=== PATIENT | female | born 1970 | race Caucasian/White ===

== ENCOUNTER → 2016-08-11 | Outpatient (REF) | payer BC, OTHER ==
[~2016-08-11] MED LIST: VICO5TAB OR
[2016-08-11 11:22] LABS: BASO % 0.6 % (0.0-1.0); EOS # 0.1 K/mm3 (0.0-0.50); EOS % 1.6 % (0.0-3.0); LARGE UNSTAINED CELL # 0.1 K/mm3 (0.0-0.4); LARGE UNSTAINED CELL % 1.3 % (0.0-4.0); LYMPH % 23.6 % (24.0-44.0); MEAN CORPUSCULAR HEMOGLOBIN 29.6 pg (27.0-33.0); MEAN CORPUSCULAR HGB CONC 33.6 g/dl (32.0-36.5); MEAN CORPUSCULAR VOLUME 88.2 fl (80.0-96.0); MONO # 0.4 K/mm3 (0.0-0.8); MONO % 4.2 % (0.0-5.0); NEUTROPHILS # 5.9 K/mm3 (1.8-7.7); NEUTROPHILS % 68.6 % (36.0-66.0); PLATELET COUNT, AUTOMATED 264 k/mm3 (150-450); RED CELL DISTRIBUTION WIDTH 12.3 % (11.5-14.5); WHITE BLOOD COUNT 8.5 K/mm3 (4.0-10.0)
[2016-08-11 11:39] LABS: VITAMIN B12 LEVEL 816 PG/ML
[2016-08-11 11:40] LABS: FOLATE 15.9 NG/ML
[2016-08-11 11:53] LABS: ALBUMIN 3.8 GM/DL (3.2-5.2); ALBUMIN/GLOBULIN RATIO 1.09 (1.00-1.93); ALKALINE PHOSPHATASE 89 U/L (45-117); ALT/SGPT 21 U/L (12-78); ANION GAP 11 MEQ/L (8-16); AST/SGOT 17 U/L (15-37); BILIRUBIN,TOTAL 0.6 MG/DL (0.2-1.0); BLOOD UREA NITROGEN 13 MG/DL (7-18); CALCIUM LEVEL 8.9 MG/DL (8.5-10.1); CARBON DIOXIDE LEVEL 31 MEQ/L (21-32); CHLORIDE LEVEL 100 MEQ/L (98-107); CHOLESTEROL LEVEL 209 MG/DL (<200); CREATININE FOR GFR 0.86 MG/DL (0.55-1.02); GLOMERULAR FILTRATION RATE > 60.0 (>58); GLUCOSE, FASTING 112 MG/DL (70-105); MAGNESIUM LEVEL 2.2 MG/DL (1.8-2.4); SODIUM LEVEL 142 MEQ/L (136-145); TOTAL PROTEIN 7.3 GM/DL (6.4-8.2); TRIGLYCERIDES LEVEL 156 MG/DL (<150)
== END ==
LOC: M LABDRAW1 10:59
PROVIDERS: ATTEND Emergency Medicine
DX: I10 Essential (primary) hypertension (principal); G43.909 Migraine, unspecified, not intractable, without status migrainosus; G25.81 Restless legs syndrome

== ENCOUNTER → 2016-11-23 | Outpatient (REF) | payer OTHER | LOC: M LAB REF 16:50 | PROVIDERS: ATTEND Emergency Medicine | DX: Z12.4 Encounter for screening for malignant neoplasm of cervix (principal) ==

== ENCOUNTER → 2017-03-01 | Outpatient (REF) | payer OTHER ==
[2017-03-01 14:42] LABS: ALBUMIN 3.4 GM/DL (3.2-5.2); ALKALINE PHOSPHATASE 75 U/L (45-117); ALT/SGPT 17 U/L (12-78); ANION GAP 9 MEQ/L (8-16); AST/SGOT 11 U/L (15-37); BILIRUBIN,TOTAL 0.4 MG/DL (0.2-1.0); BLOOD UREA NITROGEN 16 MG/DL (7-18); CALCIUM LEVEL 8.8 MG/DL (8.5-10.1); CARBON DIOXIDE LEVEL 28 MEQ/L (21-32); CHLORIDE LEVEL 99 MEQ/L (98-107); CHOLESTEROL LEVEL 173 MG/DL (<200); CREATININE FOR GFR 0.78 MG/DL (0.55-1.02); GLOMERULAR FILTRATION RATE > 60.0 (>58); GLUCOSE, FASTING 110 MG/DL (70-105); POTASSIUM SERUM 3.8 MEQ/L (3.5-5.1); SODIUM LEVEL 136 MEQ/L (136-145); TOTAL PROTEIN 6.5 GM/DL (6.4-8.2); TRIGLYCERIDES LEVEL 106 MG/DL (<150)
== END ==
LOC: M LABDRAW1 13:50
PROVIDERS: ATTEND Emergency Medicine
DX: I10 Essential (primary) hypertension (principal); R73.01 Impaired fasting glucose; E55.9 Vitamin D deficiency, unspecified

== ENCOUNTER 2017-10-09 19:18 | Emergency (ER) | payer BC, OTHER ==
[2017-10-09] MEDS: NORCO, ANEXSIA 5/325MG TABLET (HYDROcodone/ACETAMINOPHEN) PO (19:59)
== END 2017-10-09 20:52 | disposition home or self-care (01) ==
LOC: M ED 19:18
DX: S93.401A Sprain of unspecified ligament of right ankle, initial encounter (principal); X50.0XXA Overexertion from strenuous movement or load, initial encounter; Y92.89 Other specified places as the place of occurrence of the external cause; Y93.B9 Activity, other involving muscle strengthening exercises; J45.909 Unspecified asthma, uncomplicated; F33.9 Major depressive disorder, recurrent, unspecified; Z79.899 Other long term (current) drug therapy; Z97.5 Presence of (intrauterine) contraceptive device
CPT/HCPCS: 73610

== ENCOUNTER → 2018-03-17 | Outpatient (REF) | payer OTHER ==
[2018-03-17 10:56] LABS: ALBUMIN 3.6 GM/DL (3.2-5.2); ALBUMIN/GLOBULIN RATIO 1.09 (1.00-1.93); ALKALINE PHOSPHATASE 77 U/L (45-117); ALT/SGPT 23 U/L (12-78); ANION GAP 8 MEQ/L (8-16); AST/SGOT 11 U/L (7-37); BILIRUBIN,TOTAL 0.5 MG/DL (0.2-1.0); BLOOD UREA NITROGEN 17 MG/DL (7-18); CARBON DIOXIDE LEVEL 30 MEQ/L (21-32); CHLORIDE LEVEL 103 MEQ/L (98-107); CHOLESTEROL LEVEL 179 MG/DL (<200); CHOLESTEROL RISK RATIO 4.475 (<5); CREATININE FOR GFR 0.79 MG/DL (0.55-1.30); GLOMERULAR FILTRATION RATE > 60.0 (>58); GLUCOSE, FASTING 121 MG/DL (70-100); HDL CHOLESTEROL 40 MG/DL (>40); LDL CHOLESTEROL 115.4 MG/DL (<100); NON-HDL-C 139 MG/DL; POTASSIUM SERUM 4.2 MEQ/L (3.5-5.1); SODIUM LEVEL 141 MEQ/L (136-145); TOTAL PROTEIN 6.9 GM/DL (6.4-8.2); TRIGLYCERIDES LEVEL 118 MG/DL (<150)
[2018-03-17 11:43] LABS: ESTIMATED AVERAGE GLUCOSE 123 MG/DL (60-110); HEMOGLOBIN A1c 5.9 %
== END ==
LOC: M LABDRAW1 09:58
DX: I10 Essential (primary) hypertension (principal); R73.01 Impaired fasting glucose; E55.9 Vitamin D deficiency, unspecified

== ENCOUNTER 2018-09-21 14:28 | Emergency (ER) | payer BC, OTHER ==
[~2018-09-21] VITALS: Ht 160 cm; Wt 103.6 kg
[~2018-09-21 14:28] MED LIST changes: +ALEV220C2 PO; +CHLO125TA; +FISH100049 PO; +MIRE1IUD IU; +NORCOTAB PO; +POTA1TAB23; +ZYRT10CA PO
[2018-09-21] MEDS ORDERED: CELE1CAP7 PO (14:46)
[2018-09-21] MEDS ORDERED: FRUIT PO (14:46)
[2018-09-21] MEDS ORDERED: [UNRECOGNIZED DRUG - OTHER] PO (14:46)
[2018-09-21] MEDS ORDERED: GI COCKTAIL 50ML BTL(HYOSCYAMINE/MAALOX/LIDOCAINE VISCOUS)(1:3:1) PO ONE (15:00)
[2018-09-21 15:04] LABS: BASO # 0.1 10^3/uL (0.0-0.2); BASO % 0.5 % (0.0-1.0); EOS # 0.1 10^3/uL (0.0-0.50); EOS % 0.6 % (0.0-3.0); HEMATOCRIT 40.2 % (36.0-47.0); HEMOGLOBIN 13.9 g/dl (12.0-15.5); LYMPH # 2.3 10^3/uL (1.5-4.5); LYMPH % 18.1 % (24.0-44.0); MEAN CORPUSCULAR HEMOGLOBIN 30.3 pg (27.0-33.0); MEAN CORPUSCULAR HGB CONC 34.6 g/dl (32.0-36.5); MEAN CORPUSCULAR VOLUME 87.6 fl (80.0-96.0); MONO # 0.8 10^3/uL (0.0-0.8); MONO % 5.8 % (0.0-5.0); NEUTROPHILS # 9.6 10^3/uL (1.8-7.7); NEUTROPHILS % 74.5 % (36.0-66.0); PLATELET COUNT, AUTOMATED 255 10^3/uL (150-450); RED BLOOD COUNT 4.59 10^6/uL (4.00-5.40); WHITE BLOOD COUNT 12.9 10^3/uL (4.0-10.0)
[2018-09-21 15:15] LABS: INR 0.96; PROTHROMBIN TIME 12.9 SECONDS (12.1-14.4)
--- NOTE | 2018-09-21 15:22 | REP ---
CHEST: Single view. COMPARISON: 12/02/2015 There is no evidence of acute infiltrate. No pleural effusion is seen. The heart is normal in size. The mediastinal silhouette is unremarkable. The visualized osseous structures are intact. IMPRESSION: No acute pulmonary disease. Electronically Signed by Rony Lynn MD 09/22/2018 03:52 P
[2018-09-21 15:25] LABS: D-DIMER QUANT 339.38 ng/ml (<500)
[2018-09-21 15:38] LABS: ALBUMIN 3.6 GM/DL (3.2-5.2); ALT/SGPT 23 U/L (12-78); BILIRUBIN,DIRECT < 0.1 MG/DL (0.0-0.2); BILIRUBIN,TOTAL 0.3 MG/DL (0.2-1.0); BLOOD UREA NITROGEN 13 MG/DL (7-18); CALCIUM LEVEL 8.3 MG/DL (8.5-10.1); CARBON DIOXIDE LEVEL 27 MEQ/L (21-32); CHLORIDE LEVEL 103 MEQ/L (98-107); CPK CREATINE PHOSPHOKINASE 56 U/L (26-192); GLOMERULAR FILTRATION RATE > 60.0 (>58); GLUCOSE, FASTING 142 MG/DL (70-100); LIPASE 141 U/L (73-393); MB/CK RELATIVE INDEX 1.79 (< OR =4); NT-PRO BNP 27 PG/ML (<125); POTASSIUM SERUM 3.2 MEQ/L (3.5-5.1); SODIUM LEVEL 138 MEQ/L (136-145); TOTAL PROTEIN 6.7 GM/DL (6.4-8.2); TROPONIN I < 0.02 NG/ML (< 0.10)
[2018-09-21] MEDS ORDERED: POTASSIUM CHLORIDE 10 MEQ SR TABLET PO ONE (16:00)
[2018-09-21] MEDS ORDERED: SUCR1SS PO (16:48)
[2018-09-21] MEDS ORDERED: PEPC1TAB5 PO (16:49)
[2018-09-21 17:56] VITALS: BP 113/56
--- NOTE | 2018-09-22 00:49 | ECGEPIP ---
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
== END 2018-09-21 17:57 | disposition home or self-care (01) ==
LOC: M ED 14:28
DX: R07.9 Chest pain, unspecified (principal); R06.02 Shortness of breath; I10 Essential (primary) hypertension; J45.909 Unspecified asthma, uncomplicated; Z88.5 Allergy status to narcotic agent; Z79.899 Other long term (current) drug therapy; Z97.5 Presence of (intrauterine) contraceptive device; Z82.49 Family history of ischemic heart disease and other diseases of the circulatory system; Z83.3 Family history of diabetes mellitus

== ENCOUNTER → 2019-06-25 | Outpatient (CLI) | payer BC, OTHER ==
[~2019-06-25] MED LIST changes: +CELE1CAP7 PO; +FRUIT PO; +HYDR-3715 PO; -NORCOTAB PO; +PEPC1TAB5 PO; +SUCR1SS PO; +[UNRECOGNIZED DRUG - OTHER] PO
[2019-06-25 07:24] LABS: HEMOGLOBIN A1c 7.8 %
[2019-06-25 07:29] LABS: BLOOD UREA NITROGEN 16 MG/DL (7-18); CALCIUM LEVEL 9.1 MG/DL (8.5-10.1); CARBON DIOXIDE LEVEL 31 MEQ/L (21-32); CHLORIDE LEVEL 99 MEQ/L (98-107); CHOLESTEROL LEVEL 196 MG/DL (<200); CHOLESTEROL RISK RATIO 5.444 (<5); GLOMERULAR FILTRATION RATE > 60.0 (>58); GLUCOSE, FASTING 183 MG/DL (70-100); HDL CHOLESTEROL 36 MG/DL (>40); LDL CHOLESTEROL 128 MG/DL (<100); NON-HDL-C 160 MG/DL; POTASSIUM SERUM 3.4 MEQ/L (3.5-5.1); SODIUM LEVEL 139 MEQ/L (136-145); TRIGLYCERIDES LEVEL 159 MG/DL (<150)
== END ==
LOC: M LAB 06:16
PROVIDERS: ATTEND Physician Assistant
DX: R73.01 Impaired fasting glucose (principal); I10 Essential (primary) hypertension

== ENCOUNTER 2019-09-09 02:29 | Emergency (ER) | payer BC, OTHER ==
[~2019-09-09] VITALS: Ht 160 cm; Wt 104.5 kg
[2019-09-09] MEDS ORDERED: VITA100054 PO (02:44)
[2019-09-09] MEDS ORDERED: CHLO25TA PO (02:44)
[2019-09-09] MEDS ORDERED: MULTCAP PO (02:44)
[2019-09-09 03:09] LABS: BASO # 0.1 10^3/uL (0.0-0.2); BASO % 0.5 % (0.0-1.0); EOS # 0.1 10^3/uL (0.0-0.5); EOS % 0.9 % (0.0-3.0); HEMATOCRIT 41.7 % (36.0-47.0); HEMOGLOBIN 14.1 g/dl (12.0-15.5); LYMPH # 2.8 10^3/uL (1.5-5.0); LYMPH % 19.1 % (24.0-44.0); MEAN CORPUSCULAR HEMOGLOBIN 29.4 pg (27.0-33.0); MEAN CORPUSCULAR HGB CONC 33.8 g/dl (32.0-36.5); MEAN CORPUSCULAR VOLUME 86.9 fl (80.0-96.0); MONO # 0.9 10^3/uL (0.0-0.8); MONO % 6.1 % (0.0-5.0); NEUTROPHILS # 10.7 10^3/uL (1.5-8.5); NEUTROPHILS % 72.6 % (36.0-66.0); PLATELET COUNT, AUTOMATED 260 10^3/uL (150-450); WHITE BLOOD COUNT 14.8 10^3/uL (4.0-10.0)
[2019-09-09 03:20] LABS: INR 1.02; PROTHROMBIN TIME 13.1 SECONDS (11.8-14.0)
[2019-09-09 03:51] LABS: ALBUMIN 2.9 GM/DL (3.2-5.2); ALT/SGPT 36 U/L (12-78); BILIRUBIN,DIRECT 0.1 MG/DL (0.0-0.2); BILIRUBIN,TOTAL 0.4 MG/DL (0.2-1.0); BLOOD UREA NITROGEN 8 MG/DL (7-18); CALCIUM LEVEL 7.5 MG/DL (8.5-10.1); CARBON DIOXIDE LEVEL 27 MEQ/L (21-32); CHLORIDE LEVEL 102 MEQ/L (98-107); CK-MB VALUE MASS < 1.0 NG/ML (<3.6); CPK CREATINE PHOSPHOKINASE 35 U/L (26-192); CREATININE FOR GFR 0.65 MG/DL (0.55-1.30); GLOMERULAR FILTRATION RATE > 60.0 (>58); GLUCOSE, FASTING 198 MG/DL (70-100); LIPASE 112 U/L (73-393); MB/CK RELATIVE INDEX 2.86 (< OR =4); POTASSIUM SERUM 2.6 MEQ/L (3.5-5.1); SODIUM LEVEL 139 MEQ/L (136-145); TOTAL PROTEIN 5.8 GM/DL (6.4-8.2); TROPONIN I < 0.02 NG/ML (< 0.10)
[2019-09-09] MEDS ORDERED: POTASSIUM CHLORIDE 10 MEQ SR TABLET PO ONE (04:00)
[2019-09-09] MEDS ORDERED: ISOVUE-370 76% 100ML VIAL (Q9967) As Ordered ONE (04:04)
--- NOTE | 2019-09-09 05:25 | REPVR ---
PROCEDURE INFORMATION: Exam: CT Angiography Chest With Contrast Exam date and time: 09/09/2019 4:27 AM Age: 48 years old Clinical indication: Chest pain; Type not specified; Additional info: Cp TECHNIQUE: Imaging protocol: Computed tomographic angiography of the chest with intravenous contrast. 3D rendering: MIP and/or 3D reconstructed images were created by the technologist. Radiation optimization: All CT scans at this facility use at least one of these dose optimization techniques: automated exposure control; mA and/or kV adjustment per patient size (includes targeted exams where dose is matched to clinical indication); or iterative reconstruction. Contrast material: ISOVUE 370; Contrast volume: 75 ml; Contrast route: IV; COMPARISON: CR PORTABLE CHEST X-RAY 09/09/2019 2:47 AM FINDINGS: Pulmonary arteries: No pulmonary arterial embolism identified. Aorta: Unremarkable. No aortic aneurysm. No aortic dissection. Lungs: Minimal dependent changes within the lung bases, likely atelectasis. Mild bilateral lung mosaic attenuation pattern. No pulmonary consolidation. Pleural space: Unremarkable. No pneumothorax. No pleural effusion. Heart: Unremarkable. No cardiomegaly. No pericardial effusion. Mediastinum: Generalized wall thickness of the distal esophagus, possibly secondary to esophagitis or other esophageal abnormality. Consider upper endoscopy as clinically indicated. Liver: Diffuse fatty infiltration of the liver. Lymph nodes: Unremarkable. No enlarged lymph nodes. Bones/joints: Mild degenerative spondylosis of the thoracic spine. No fracture or suspicious bone lesion. Soft tissues: Unremarkable. IMPRESSION: 1. No pulmonary arterial embolism. 2. Mild bilateral lung mosaic attenuation pattern. This may be seen with small airways disease, ground-glass lung disease as well as chronic veno-occlusive disease. 3. Generalized wall thickening of the distal esophagus, possibly secondary to esophagitis or other esophageal abnormality. Consider upper endoscopy as clinically indicated. Electronically signed by: Ed Troy On 09/09/2019 05:26:46 AM
[2019-09-09] MEDS ORDERED: PANTOPRAZOLE 40MG INJ (PROTONIX) (C9113) IV ONE (05:45)
[2019-09-09] MEDS ORDERED: PROT1TAB2 PO (05:55)
[2019-09-09 06:15] VITALS: BP 131/72
--- NOTE | 2019-09-09 08:08 | REP ---
Portable chest, 02:40 a.m., single AP view with the patient sitting: Comparison is 09/21/2018. The lung ribera are clear. The cardiac size is normal. The brad, mediastinum, and skeletal structures are unremarkable. Impression: Negative portable chest. There is no interval change. Electronically Signed by Rony Rodriguez MD 09/09/2019 07:59 A
--- NOTE | 2019-09-09 13:11 | ECGEPIP ---
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
== END 2019-09-09 06:16 | disposition home or self-care (01) ==
LOC: M ED 02:29
DX: K20.9 Esophagitis, unspecified (principal); J98.4 Other disorders of lung; R94.31 Abnormal electrocardiogram [ECG] [EKG]; I10 Essential (primary) hypertension; K21.9 Gastro-esophageal reflux disease without esophagitis; G89.29 Other chronic pain; M54.2 Cervicalgia; J45.909 Unspecified asthma, uncomplicated; E66.9 Obesity, unspecified; Z88.5 Allergy status to narcotic agent; Z79.899 Other long term (current) drug therapy
CPT/HCPCS: 71045; 71275; 80048; 80076; 82550; 82553; 83690; 84484; 85025; 85610; 85730; 93005; 93041; 94760; 96374; 99285; C9113; Q9967

== ENCOUNTER → 2019-10-31 | Outpatient (CLI) | payer BC, OTHER ==
[~2019-10-31] MED LIST changes: +CHLO25TA PO; +E-Z-GAS II EFFERVESCENT PACKET (SODIUM BICARB./CITRIC ACID/SIMETHICONE) As Ordered ONE; +E-Z-HD 98% w/w 340GM SUSP BTL As Ordered ONE; +E-Z-PAQUE 96% w/w SUSP 176GM BTL As Ordered ONE; +MULTCAP PO; +PROT1TAB2 PO; +VITA100054 PO
--- NOTE | 2019-10-31 16:37 | REP ---
Esophagram The procedure was performed under the direct supervision of Dr. Morales. The images were reviewed with Dr. Morales. A single view PA chest x-ray is submitted as a prepared foods production team member film. The superior mediastinal structures are midline. The heart size is within normal limits. The lungs are clear. Liquid barium and gas producing granules were given in the erect position as well as liquid barium in the prone oblique positions in order to perform a double contrast esophagram examination. The oral and pharyngeal stages of deglutition are unremarkable. There are esophageal transport there are tertiary waves demonstrated. There is no esophagitis, stricture or mucosal ring. There is a small sliding-type hiatal hernia. There is gastroesophageal reflux demonstrated to above the level of the bell. Impression: 1. Tertiary waves. 2. There is a small sliding-type hiatal hernia. There is gastroesophageal reflux demonstrated to above the level of the bell. 0.8 minutes of fluoro time was utilized for this procedure. Electronically Signed by ELIZABETH Bassett 10/31/2019 04:23 P Electronically Signed by Nicholas Morales MD 10/31/2019 04:28 P
== END ==
LOC: M RAD 07:59
PROVIDERS: ATTEND Physician Assistant Medical
DX: R13.10 Dysphagia, unspecified (principal); K21.9 Gastro-esophageal reflux disease without esophagitis; R93.3 Abnormal findings on diagnostic imaging of other parts of digestive tract; K44.9 Diaphragmatic hernia without obstruction or gangrene

== ENCOUNTER → 2019-12-18 | Outpatient (CLI) | payer BC, OTHER ==
[~2019-12-18] MED LIST changes: +ADVA115A INH; +CETI10CA13 PO; -E-Z-GAS II EFFERVESCENT PACKET (SODIUM BICARB./CITRIC ACID/SIMETHICONE) As Ordered ONE; -E-Z-HD 98% w/w 340GM SUSP BTL As Ordered ONE; -E-Z-PAQUE 96% w/w SUSP 176GM BTL As Ordered ONE; +VITAD1000T PO
== END ==
LOC: M LABSMTC 09:45
PROVIDERS: ATTEND Anesthesiology
DX: Z01.812 Encounter for preprocedural laboratory examination (principal); Z11.59 Encounter for screening for other viral diseases
CPT/HCPCS: C9803; U0003

== ENCOUNTER 2019-12-21 13:58 | Day surgery (SDC) | payer BC, OTHER ==
[~2019-12-21] VITALS: Ht 160 cm; Wt 109.5 kg
[~2019-12-21 13:58] MED LIST changes: +LIDOCAINE 2% 100MG/5ML SDV (FOR ANES.) As Ordered ONE; +NS 1,000 ML IV ONE; +fentaNYL 100 MCG/2 ML INJECTION (J3010) As Ordered ONE; +propofoL 200 MG/20 ML VIAL As Ordered ONE
[2019-12-21 15:20] VITALS: BP 135/99
--- NOTE | 2019-12-21 15:52 | ROOR ---
Patient Name: Cira Ramey Procedure Date: 12/21/2019 2:46 PM Date of : 1970 Age: 49 Room: [facility] Gender: Female Note Status: Finalized Procedure: Upper GI endoscopy Indications: Dyspepsia, Dysphagia, Heartburn Providers: Bernardino Reeves MD Referring MD: KEKE Pacheco Requesting Provider: Medicines: Monitored Anesthesia Care Complications: No immediate complications. Procedure: Pre-Anesthesia Assessment: - Prior to the procedure, a History and Physical was performed, and patient medications and allergies were reviewed. The patient is competent. The risks and benefits of the procedure and the sedation options and risks were discussed with the patient. All questions were answered and informed consent was obtained. Patient identification and proposed procedure were verified by the physician, the nurse and the anesthesiologist in the procedure room. Mental Status Examination: alert and oriented. Airway Examination: normal oropharyngeal airway and neck mobility. Respiratory Examination: clear to auscultation. CV Examination: normal. Prophylactic Antibiotics: The patient does not require prophylactic antibiotics. Prior Anticoagulants: The patient has taken no previous anticoagulant or antiplatelet agents. ASA Grade Assessment: II - A patient with mild systemic disease. After reviewing the risks and benefits, the patient was deemed in satisfactory condition to undergo the procedure. The anesthesia plan was to use monitored anesthesia care (MAC). Immediately prior to administration of medications, the patient was re-assessed for adequacy to receive sedatives. The heart rate, respiratory rate, oxygen saturations, blood pressure, adequacy of pulmonary ventilation, and response to care were monitored throughout the procedure. The physical status of the patient was re-assessed after the procedure. The Endoscope was introduced through the mouth, and advanced to the second part of duodenum. The upper GI endoscopy was accomplished without difficulty. The patient tolerated the procedure well. Findings: The Z-line was regular and was found 40 cm from the incisors. No endoscopic abnormality was evident in the esophagus to explain the patient's complaint of dysphagia. Biopsies were obtained from the proximal and distal esophagus with cold forceps for histology of suspected eosinophilic esophagitis. Scattered mild inflammation characterized by erythema and granularity was found in the gastric antrum. Biopsies were taken with a cold forceps for Helicobacter pylori testing. The duodenal bulb and second portion of the duodenum were normal. Biopsies for histology were taken with a cold forceps for evaluation of celiac disease. Impression: - Z-line regular, 40 cm from the incisors. - No endoscopic esophageal abnormality to explain patient's dysphagia. Biopsied. - Gastritis. Biopsied. - Normal duodenal bulb and second portion of the duodenum. Biopsied. Recommendation: - Patient has a contact number available for emergencies. The signs and symptoms of potential delayed complications were discussed with the patient. Return to normal activities tomorrow. Written discharge instructions were provided to the patient. - Resume previous diet. - Continue present medications. - Await pathology results. - Follow an antireflux regimen. - Telephone GI clinic for pathology results in 2 weeks. - Return to primary care physician. Bernardino Reeves MD Bernaridno Reeves MD 12/21/2019 3:52:31 PM Electronically signed by Bernardino Reeves MD Number of Addenda: 0 Note Initiated On: 12/21/2019 2:46 PM Estimated Blood Loss: Estimated blood loss was minimal.
== END 2019-12-21 16:09 | disposition home or self-care (01) ==
LOC: M OPP 13:58
PROVIDERS: ATTEND Internal Medicine Gastroenterology
DX: R13.10 Dysphagia, unspecified (principal); K29.70 Gastritis, unspecified, without bleeding; R10.13 Epigastric pain; G47.30 Sleep apnea, unspecified; Z79.891 Long term (current) use of opiate analgesic; Z79.899 Other long term (current) drug therapy; Z88.5 Allergy status to narcotic agent; Z97.5 Presence of (intrauterine) contraceptive device
CPT/HCPCS: 43239; 88305; J3010

== ENCOUNTER 2020-02-12 08:32 | Emergency (ER) | payer BC, OTHER ==
[~2020-02-12] VITALS: Ht 160 cm; Wt 104.9 kg
[~2020-02-12 08:32] MED LIST changes: -LIDOCAINE 2% 100MG/5ML SDV (FOR ANES.) As Ordered ONE; -NS 1,000 ML IV ONE; -fentaNYL 100 MCG/2 ML INJECTION (J3010) As Ordered ONE; -propofoL 200 MG/20 ML VIAL As Ordered ONE
[2020-02-12] MEDS ORDERED: METF-838 (08:41)
[2020-02-12 11:34] VITALS: BP 161/90
[2020-02-12] MEDS ORDERED: IBUP80TA PO (11:44)
[2020-02-12] MEDS ORDERED: KETOROLAC 30 MG/ML 1ML VIAL IM ONE (11:45)
--- NOTE | 2020-02-12 12:36 | REP ---
RIGHT SHOULDER, THREE VIEWS: Three views of the right shoulder performed. There is a tiny calcific density along the inferior glenoid which may represent an avulsion fracture, of indeterminate age. There is no other evidence of acute fracture, dislocation or intrinsic bone disease. Electronically Signed by Rony Lynn MD 02/12/2020 07:38 P
== END 2020-02-12 12:10 | disposition home or self-care (01) ==
LOC: M ED 08:32
DX: S42.141A Displaced fracture of glenoid cavity of scapula, right shoulder, initial encounter for closed fracture (principal); X58.XXXA Exposure to other specified factors, initial encounter; Y92.9 Unspecified place or not applicable; Y93.9 Activity, unspecified; Y99.8 Other external cause status; R51 Headache; J45.909 Unspecified asthma, uncomplicated; F32.9 Major depressive disorder, single episode, unspecified; Z79.899 Other long term (current) drug therapy; Z88.5 Allergy status to narcotic agent
CPT/HCPCS: 73030; 99283; J1885

== ENCOUNTER → 2020-11-26 | Outpatient (CLI) | payer BC, OTHER ==
[~2020-11-26] MED LIST changes: +D31000TA2 PO; +IBUP80TA PO; +METF-838; -VITAD1000T PO
--- NOTE | 2020-11-26 20:40 | ECGEPIP ---
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
== END ==
LOC: M EKG 07:51
PROVIDERS: ATTEND Family Medicine
DX: Z01.818 Encounter for other preprocedural examination (principal)

== ENCOUNTER 2021-01-16 15:06 | Emergency (ER) | payer BC, OTHER ==
[~2021-01-16] VITALS: Ht 160 cm; Wt 103.7 kg
[2021-01-16] MEDS ORDERED: OXYC-517 PO (15:14)
[2021-01-16] MEDS ORDERED: SENN-80 PO (15:14)
[2021-01-16] MEDS ORDERED: LYRI75CA PO (15:14)
[2021-01-16] MEDS ORDERED: LISI-898 PO (15:14)
[2021-01-16] MEDS ORDERED: COLA100C5 PO (15:14)
[2021-01-16] MEDS ORDERED: FERR29CA PO (15:14)
[2021-01-16] MEDS ORDERED: SEMA3TAB PO (15:14)
--- NOTE | 2021-01-16 15:41 | REP ---
INDICATION: CONSTIPATION. COMPARISON: None. FINDINGS: Supine and upright views of the abdomen show the intestinal gas pattern to be nonspecific. Gas and stool is seen throughout the colon and a moderate amount of stool is seen in the descending colon and rectosigmoid region. The organ silhouettes insofar as delineated appear unremarkable. No abdominal calcific densities are seen within the abdomen or pelvis. There is a single loop of gas-filled possibly minimally dilated small bowel in the left upper quadrant. The accompanying single frontal view of the chest shows no free subdiaphragmatic air, cardiomegaly, infiltrates or effusions. IMPRESSION: Nonspecific intestinal gas pattern. As described above. Mild small bowel ileus cannot be ruled. <Electronically signed by Juancarlos Virgen > 01/16/21 [id number]
[2021-01-16 19:59] VITALS: BP 130/86
== END 2021-01-16 20:00 | disposition home or self-care (01) ==
LOC: M ED 15:06
DX: K56.41 Fecal impaction (principal); I10 Essential (primary) hypertension; K21.9 Gastro-esophageal reflux disease without esophagitis; M54.5 Low back pain; R51.9 Headache, unspecified; Z88.6 Allergy status to analgesic agent; Z79.899 Other long term (current) drug therapy

== ENCOUNTER 2023-09-30 06:13 | Day surgery (SDC) | payer BC, OTHER ==
[~2023-09-30] VITALS: Ht 160 cm; Wt 113.9 kg
[~2023-09-30 06:13] MED LIST changes: +ADVI200T PO; +ALBU6.7H6 INH; -CELE1CAP7 PO; +CELE1CAP99 PO; +COLA100C5 PO; -D31000TA2 PO; +FERR29CA PO; +LISI5TAB11 PO; +LYRI75CA PO; +OXYC-517 PO; +SEMA3TAB4 PO; +SENN-186 PO; +VITA100093 PO; +mirena
[2023-09-30] MEDS ORDERED: propofoL 200 MG/20 ML VIAL As Ordered ONE (06:57)
[2023-09-30] MEDS ORDERED: LIDOCAINE 2% 100MG/5ML SDV (FOR ANES.) As Ordered ONE (06:58)
[2023-09-30] MEDS: LR 1,000 ML IV SCH ×2 (07:12→08:42)
[2023-09-30] MEDS ORDERED: MIDAZOLAM INJ 2MG/2ML VIAL As Ordered ONE (07:22)
[2023-09-30] MEDS ORDERED: LABETALOL 100MG/20ML VIAL As Ordered ONE (07:50)
[2023-09-30] MEDS ORDERED: fentaNYL 100 MCG/2 ML INJECTION As Ordered ONE (07:54)
[2023-09-30] MEDS ORDERED: hydrALAZINE 20MG/ML 1ML VIAL As Ordered ONE (08:01)
[2023-09-30] MEDS ORDERED: fentaNYL 100 MCG/2 ML INJECTION IV PRN (08:15)
[2023-09-30] MEDS ORDERED: ONDANSETRON 4MG 2ML VIAL IV PRN (08:15)
[2023-09-30] MEDS ORDERED: GLUCAGON INJ 1MG VIAL SC PRN (08:35)
[2023-09-30] MEDS ORDERED: DEXTROSE 50% 50ML SYRINGE IV PRN (08:35)
[2023-09-30] MEDS ORDERED: GLUCOSE 4GM CHEW TABLET PO PRN (08:35)
[2023-09-30] MEDS: INSULIN LISPRO (NovoLOG) PER UNIT SC PRN (08:44)
[2023-09-30 09:29] VITALS: BP 126/65; TEMP 97.8; O2SAT 97
== END 2023-09-30 09:30 | disposition home or self-care (01) ==
LOC: M SDC 06:13
PROVIDERS: ATTEND Orthopaedic Surgery Hand Surgery
DX: G56.02 Carpal tunnel syndrome, left upper limb (principal); E11.9 Type 2 diabetes mellitus without complications; I10 Essential (primary) hypertension; J45.909 Unspecified asthma, uncomplicated; G47.30 Sleep apnea, unspecified; Z79.899 Other long term (current) drug therapy; Z88.5 Allergy status to narcotic agent
CPT/HCPCS: 29848; 81025; J0360; J0665; J1815; J1920; J2250; J3010

== ENCOUNTER 2024-01-09 12:43 | Emergency (ER) | payer BC, OTHER ==
[~2024-01-09] VITALS: Ht 160 cm; Wt 112.0 kg
[2024-01-09 14:07] LABS: BASO # 0.1 10^3/uL (0.0-0.2); BASO % 0.7 % (0.0-1.0); EOS # 0.1 10^3/uL (0.0-0.5); EOS % 0.9 % (0.0-3.0); HEMATOCRIT 43.6 % (36.0-47.0); HEMOGLOBIN 14.5 g/dl (12.0-15.5); LYMPH # 2.7 10^3/uL (1.5-5.0); LYMPH % 24.3 % (24.0-44.0); MEAN CORPUSCULAR HEMOGLOBIN 29.5 pg (27.0-33.0); MEAN CORPUSCULAR HGB CONC 33.3 g/dl (32.0-36.5); MEAN CORPUSCULAR VOLUME 88.8 fl (80.0-96.0); MONO # 0.7 10^3/uL (0.0-0.8); NEUTROPHILS # 7.3 10^3/uL (1.5-8.5); NEUTROPHILS % 67.5 % (36.0-66.0); PLATELET COUNT, AUTOMATED 271 10^3/uL (150-450); RED BLOOD COUNT 4.91 10^6/uL (4.00-5.40); WHITE BLOOD COUNT 10.9 10^3/uL (4.0-10.0)
[2024-01-09 14:23] LABS: INR 0.96; PARTIAL THROMBOPLASTIN TIME 26.6 SECONDS (24.8-34.2); PROTHROMBIN TIME 12.5 SECONDS (12.5-14.5)
[2024-01-09 14:31] LABS: LIPASE 43 U/L (12-53)
[2024-01-09 14:32] LABS: CPK CREATINE PHOSPHOKINASE 51 U/L (34-145)
[2024-01-09 14:33] LABS: ALBUMIN 3.8 G/DL (3.2-5.2); ALKALINE PHOSPHATASE 122 U/L (46-116); ALT/SGPT 32 U/L (7.0-40); AST/SGOT 13 U/L (<34); BILIRUBIN,DIRECT < 0.1 MG/DL (<0.4); BILIRUBIN,TOTAL 0.3 MG/DL (0.3-1.2); BLOOD UREA NITROGEN 12 MG/DL (9-23); CALCIUM LEVEL 9.6 MG/DL (8.5-10.1); CARBON DIOXIDE LEVEL 30 MMOL/L (20-31); CHLORIDE LEVEL 100 MMOL/L (98-107); CK-MB VALUE MASS < 1.0 NG/ML (<3.6); CREATININE FOR GFR 0.69 MG/DL (0.55-1.30); GLOMERULAR FILTRATION RATE > 60.0 (>51); GLUCOSE, FASTING 296 MG/DL (60-100); MB/CK RELATIVE INDEX 1.96 (< OR =4); POTASSIUM SERUM 4.4 MMOL/L (3.5-5.1); SODIUM LEVEL 135 MMOL/L (136-145)
[2024-01-09 14:37] LABS: FREE T4 1.08 NG/DL (0.89-1.76); THYROID STIMULATING HORMONE 3.166 uIU/ML (0.55-4.78)
[2024-01-09 16:27] LABS: CK-MB VALUE MASS < 1.0 NG/ML (<3.6)
[2024-01-09 16:29] LABS: CPK CREATINE PHOSPHOKINASE 48 U/L (34-145); MB/CK RELATIVE INDEX 2.08 (< OR =4)
[2024-01-09 19:44] LABS: D-DIMER QUANT 0.33 ug/mL (<0.5)
[2024-01-09] MEDS ORDERED: ISOVUE-370 76% 100ML VIAL As Ordered ONE (20:10)
[2024-01-09] MEDS: methylPREDNISolone 125MG 2ML VIAL IV ONE (20:59)
[2024-01-09] MEDS: IPRATROPIUM 0.5MG/ALBUTEROL 2.5MG INH SOL UD 3ML (DUONEB) NEB ONE (20:59)
[2024-01-09] MEDS ORDERED: METH-1164 PO (21:55)
[2024-01-09] MEDS ORDERED: PRED20TA PO (21:55)
[2024-01-09 22:00] VITALS: BP 121/61; TEMP 97.6; O2SAT 98
== END 2024-01-09 22:04 | disposition home or self-care (01) ==
LOC: M ED 12:43
DX: R07.9 Chest pain, unspecified (principal); M62.830 Muscle spasm of back; M46.97 Unspecified inflammatory spondylopathy, lumbosacral region; J45.909 Unspecified asthma, uncomplicated; F10.10 Alcohol abuse, uncomplicated; Z91.048 Other nonmedicinal substance allergy status; Z88.5 Allergy status to narcotic agent; Z79.52 Long term (current) use of systemic steroids; Z79.811 Long term (current) use of aromatase inhibitors; Z79.899 Other long term (current) drug therapy
CPT/HCPCS: 71046; 71275; 72100; 73502; 80048; 80076; 82550; 82553; 83690; 83880; 84439; 84443; 84484; 85025; 85379; 85610; 85730; 93005; 93041; 93971; 94760; 96374; 99284; J2919; Q9967

== ENCOUNTER → 2024-01-23 | Outpatient (CLI) | payer BC ==
[~2024-01-23] MED LIST changes: +METH-1164 PO; +PRED20TA PO
[2024-01-23 08:37] LABS: HEMOGLOBIN A1c 10.5 % (4.0-6.0)
[2024-01-23 08:53] LABS: CREATININE, URINE 118.1 MG/DL; MAU/CREAT RATIO 4.2 MCG/MG (0.0-30.0)
== END ==
LOC: M LAB 07:26
PROVIDERS: ATTEND Family Medicine
DX: E11.9 Type 2 diabetes mellitus without complications (principal)

== ENCOUNTER → 2024-04-20 | Outpatient (CLI) | payer BC ==
[2024-04-20 18:52] LABS: HEMOGLOBIN A1c 8.3 % (4.0-6.0)
[2024-04-20 19:08] LABS: BLOOD UREA NITROGEN 15 MG/DL (9-23); CALCIUM LEVEL 9.6 MG/DL (8.5-10.1); CARBON DIOXIDE LEVEL 31 MMOL/L (20-31); CHLORIDE LEVEL 103 MMOL/L (98-107); GLOMERULAR FILTRATION RATE > 60.0 (>51); GLUCOSE, FASTING 194 MG/DL (60-100); POTASSIUM SERUM 5.1 MMOL/L (3.5-5.1); SODIUM LEVEL 137 MMOL/L (136-145)
== END ==
LOC: M PLALAB 15:25
PROVIDERS: ATTEND Family Medicine
DX: E11.9 Type 2 diabetes mellitus without complications (principal)

== ENCOUNTER → 2024-07-02 | Outpatient (CLI) | payer BC | LOC: M SOG 07:54 | PROVIDERS: ATTEND Physician Assistant | DX: M25.512 Pain in left shoulder (principal); M75.32 Calcific tendinitis of left shoulder ==

== ENCOUNTER 2024-09-04 07:53 | Day surgery (SDC) | payer BC ==
[~2024-09-04] VITALS: Ht 160 cm; Wt 103.2 kg
[~2024-09-04 07:53] MED LIST changes: +CLAR10CA3 PO; +ESTR0.1C5 TOP; +FEZO45TA PO; +FLUT1BLS2 INH; +SEMA2PEN PO
[2024-09-04 11:26] VITALS: TEMP 97.2
[2024-09-04 11:45] VITALS: BP 127/63; O2SAT 98
== END 2024-09-04 11:52 | disposition home or self-care (01) ==
LOC: M OPP 07:53
PROVIDERS: ATTEND Surgery
DX: Z12.11 Encounter for screening for malignant neoplasm of colon (principal); D17.5 Benign lipomatous neoplasm of intra-abdominal organs; Z80.0 Family history of malignant neoplasm of digestive organs; G47.30 Sleep apnea, unspecified; Z88.5 Allergy status to narcotic agent; Z91.09 Other allergy status, other than to drugs and biological substances; Z79.85 Long-term (current) use of injectable non-insulin antidiabetic drugs; Z79.899 Other long term (current) drug therapy; J45.909 Unspecified asthma, uncomplicated

== ENCOUNTER → 2024-12-12 | Outpatient (CLI) | payer BC ==
[2024-12-12 17:53] LABS: ALBUMIN 3.8 G/DL (3.2-5.2); BILIRUBIN,TOTAL 0.2 MG/DL (0.3-1.2); CALCIUM LEVEL 9.9 MG/DL (8.5-10.1); CHOLESTEROL RISK RATIO 5.29 (<5); CREATININE FOR GFR 0.82 MG/DL (0.55-1.30); HDL CHOLESTEROL 36.1 MG/DL (>40); LDL CHOLESTEROL 113.3 MG/DL (<100); NON-HDL-C 154.9 MG/DL; POTASSIUM SERUM 5.3 MMOL/L (3.5-5.1)
[2024-12-12 19:01] LABS: HEMOGLOBIN A1c 7.1 % (4.0-6.0)
== END ==
LOC: M PLALAB 16:09
PROVIDERS: ATTEND Family Medicine
DX: E11.9 Type 2 diabetes mellitus without complications (principal)

== ENCOUNTER → 2025-04-16 | Outpatient (CLI) | payer BC ==
[2025-04-16 17:53] LABS: ALT/SGPT 16 U/L (7.0-40); AST/SGOT 13 U/L (<34); CALCIUM LEVEL 9.6 MG/DL (8.5-10.1); CARBON DIOXIDE LEVEL 29 MMOL/L (20-31); CHLORIDE LEVEL 102 MMOL/L (98-107); CHOLESTEROL LEVEL 192 MG/DL (<200); CHOLESTEROL RISK RATIO 4.81 (<5); CREATININE FOR GFR 0.70 MG/DL (0.55-1.30); GLOMERULAR FILTRATION RATE > 90.0 (>51); LDL CHOLESTEROL 115.9 MG/DL (<100); NON-HDL-C 152.1 MG/DL; POTASSIUM SERUM 4.4 MMOL/L (3.5-5.1); SODIUM LEVEL 139 MMOL/L (136-145); TRIGLYCERIDES LEVEL 181 MG/DL (<150)
[2025-04-16 18:15] LABS: CREATININE, URINE 86.5 MG/DL; MALB URINE SIEMENS < 3.0 MG/L
[2025-04-16 18:23] LABS: ESTIMATED AVERAGE GLUCOSE 169.0 MG/DL (60-110)
== END ==
LOC: M PLALAB 15:01
PROVIDERS: ATTEND Family Medicine
DX: E11.9 Type 2 diabetes mellitus without complications (principal)

== ENCOUNTER 2025-06-24 23:16 | Emergency (ER) | payer BC ==
[~2025-06-24] VITALS: Ht 160 cm; Wt 106.7 kg
[2025-06-25] MEDS: KETOROLAC 60 MG/2 ML VIAL IM ONE (02:01)
[2025-06-25 03:42] VITALS: BP 118/59; TEMP 97.5; O2SAT 99
[2025-06-25] MEDS ORDERED: NAPR-837 PO (03:42)
== END 2025-06-25 03:45 | disposition home or self-care (01) ==
LOC: M ED 23:16
DX: M79.651 Pain in right thigh (principal); E11.9 Type 2 diabetes mellitus without complications; I10 Essential (primary) hypertension; J45.909 Unspecified asthma, uncomplicated; G43.909 Migraine, unspecified, not intractable, without status migrainosus; M19.90 Unspecified osteoarthritis, unspecified site; Z88.5 Allergy status to narcotic agent; Z79.52 Long term (current) use of systemic steroids; Z79.899 Other long term (current) drug therapy; Z79.1 Long term (current) use of non-steroidal anti-inflammatories (NSAID)
CPT/HCPCS: 73552; 93971; 96372; 99284; J1885